=== PATIENT | male | born 1995 | race Caucasian/White ===

== ENCOUNTER 2016-09-18 21:32 | Emergency (ER) | payer OTHER ==
[~2016-09-18] VITALS: Ht 175.3 cm; Wt 81.6 kg
[2016-09-18 21:33] VITALS: BP 129/77
[2016-09-18] MEDS ORDERED: NAPR250T2 PO (21:38)
[2016-09-18] MEDS ORDERED: ZYRT10CA PO (21:38)
[2016-09-18] MEDS ORDERED: predniSONE 20 MG TAB PO ONE (22:00)
[2016-09-18] MEDS ORDERED: BENA25TA9 PO (22:04)
[2016-09-18] MEDS ORDERED: PRED10TA PO (22:04)
== END 2016-09-18 22:21 | disposition home or self-care (01) ==
LOC: M ED 22:10
DX: L25.9 Unspecified contact dermatitis, unspecified cause (principal); F17.200 Nicotine dependence, unspecified, uncomplicated

== ENCOUNTER 2016-12-26 11:05 | Emergency (ER) | payer OTHER ==
[~2016-12-26] VITALS: Ht 172.7 cm; Wt 84.7 kg
[~2016-12-26 11:05] MED LIST: BENA25TA10 PO; NAPR250T4 PO; PRED10TA2 PO; ZYRT10CA PO
[2016-12-26] MEDS ORDERED: KETOROLAC 60 MG/2 ML VIAL (J1885) IM ONE (12:00)
--- NOTE | 2016-12-26 12:58 | REP ---
Right knee five views : There is no fracture or dislocation. Mineralization and joint spaces are normal. There are no calcifications or foreign bodies. Impression: Negative right knee . Signed by Deondre Whatley MD 12/26/2016 12:49 P
[2016-12-26] MEDS ORDERED: IBUP80TA PO (13:08)
[2016-12-26] MEDS ORDERED: NORCOTAB PO (13:08)
[2016-12-26] MEDS ORDERED: ROBA500T PO (13:08)
[2016-12-26 13:13] VITALS: BP 150/98
== END 2016-12-26 13:19 | disposition home or self-care (01) ==
LOC: M ED 11:05
DX: S39.012D Strain of muscle, fascia and tendon of lower back, subsequent encounter (principal); S83.91XD Sprain of unspecified site of right knee, subsequent encounter; X50.1XXD Overexertion from prolonged static or awkward postures, subsequent encounter; Y92.89 Other specified places as the place of occurrence of the external cause; Y93.89 Activity, other specified; Y99.8 Other external cause status; F17.210 Nicotine dependence, cigarettes, uncomplicated; Z79.899 Other long term (current) drug therapy
CPT/HCPCS: 73564; 96372; 99283; J1885